=== PATIENT | female | born 1995 | race Two or more races ===

== ENCOUNTER 2021-10-23 15:49 | Emergency (ER) | payer OTHER ==
[~2021-10-23] VITALS: Ht 149.9 cm; Wt 72.6 kg
[2021-10-23 16:04] VITALS: BP 135/90
[2021-10-23] MEDS ORDERED: IBUP-1955 PO (16:34)
[2021-10-23] MEDS ORDERED: IBUPROFEN 600 MG TABLET ONE (16:44)
--- NOTE | 2021-10-23 16:47 | NUR ---
Patient discharged to home in stable condition. Written and verbal after care instructions given. Patient verbalizes understanding of instruction.
[2021-10-23] MEDS ORDERED: IBUPROFEN 600 MG TABLET PO ONE ×2 (17:00)
== END 2021-10-23 16:58 | disposition home or self-care (01) ==
LOC: ER 15:53
DX: S16.1XXA Strain of muscle, fascia and tendon at neck level, initial encounter (principal); S09.90XA Unspecified injury of head, initial encounter; V32.6XXA Passenger in three-wheeled motor vehicle injured in collision with two- or three-wheeled motor vehicle in traffic accident, initial encounter; Y93.89 Activity, other specified; Y92.413 State road as the place of occurrence of the external cause; Y99.8 Other external cause status